=== PATIENT | female | born 1995 | race African-American/Black ===

== ENCOUNTER 2022-07-19 19:20 | Inpatient (IN) | payer OTHER ==
[2022-07-19] MEDS ORDERED: chlordiazePOXIDE HCL 25 MG CAPSULE PO PRN (21:40)
[2022-07-19] MEDS ORDERED: BISMUTH SUBSALICYLATE 524 MG/30 ML PO PRN (21:40)
[2022-07-19] MEDS ORDERED: MAGNESIUM HYDROX 2400MG/30ML ORAL SUSPENSION 30 ML CUP PO PRN (21:40)
[2022-07-19] MEDS ORDERED: LOPERAMIDE HCL 2 MG CAPSULE PO PRN (21:40)
[2022-07-19] MEDS ORDERED: BENZOCAINE/MENTHOL (CHLORASEPTIC ) LOZENGE MM PRN (21:40)
[2022-07-19] MEDS ORDERED: BENZONATATE 200 MG CAPSULE PO PRN (21:40)
[2022-07-19] MEDS ORDERED: ONDANSETRON *ODT* 4 MG TABLET SL PRN (21:40)
[2022-07-19] MEDS ORDERED: IBUPROFEN 400 MG TABLET (FP) PO PRN (21:40)
[2022-07-19] MEDS ORDERED: NALOXONE HCL (KLOXXADO) 8 MG SPRAY NS PRN (21:40)
[2022-07-19] MEDS ORDERED: DICYCLOMINE HCL 10 MG CAPSULE PO PRN (21:40)
[2022-07-19] MEDS ORDERED: POLYETHYLENE GLYCOL (HEALTHYLAX) 3350 17 GM PACKET PO PRN (21:40)
[2022-07-19] MEDS ORDERED: NALOXONE HCL 0.4 MG/ML VIAL IM PRN (21:40)
[2022-07-19] MEDS ORDERED: guaiFENesin 600 MG TABLET.ER (FP) PO PRN (21:40)
[2022-07-19] MEDS ORDERED: ACETAMINOPHEN 325 MG TABLET (FP) PO PRN (21:40)
[2022-07-19] MEDS ORDERED: MAG HYDROX/AL HYDROX/SIMETH 30 ML UNIT-DOSE CUP PO PRN (21:40)
[2022-07-19] MEDS ORDERED: MELATONIN 5 MG TABLETS PO SCH (22:00)
[2022-07-19] MEDS: THIAMINE HCL 100 MG TABLET (FP) PO SCH (22:37)
[2022-07-19] MEDS: cloNIDine HCL 0.1 MG TABLET PO PRN (22:39)
[2022-07-19] MEDS: chlordiazePOXIDE HCL 25 MG CAPSULE PO SCH (22:40)
[2022-07-19] MEDS ORDERED: chlordiazePOXIDE HCL 25 MG CAPSULE PO SCH (23:00)
[2022-07-20] MEDS: chlordiazePOXIDE HCL 25 MG CAPSULE PO SCH ×4 (06:06→22:08)
[2022-07-20] MEDS: PRENATAL VITAMINS W/ FOLIC ACID TABLET (FP) PO SCH (10:36)
[2022-07-20] MEDS: METHOCARBAMOL 500 MG TABLET PO PRN (17:51)
[2022-07-20] MEDS: THIAMINE HCL 100 MG TABLET (FP) PO SCH (22:07)
[2022-07-20] MEDS: MELATONIN 5 MG TABLETS PO SCH (22:07)
[2022-07-21] MEDS: chlordiazePOXIDE HCL 25 MG CAPSULE PO SCH ×4 (06:00→22:18)
[2022-07-21] MEDS: cloNIDine HCL 0.1 MG TABLET PO PRN ×2 (09:01→13:37)
[2022-07-21] MEDS: PRENATAL VITAMINS W/ FOLIC ACID TABLET (FP) PO SCH (10:11)
[2022-07-21 12:00] LABS: HEMATOCRIT 38.3 % (32.4-45.2); HEMOGLOBIN 13.2 GM/dL (10.7-15.3); MCH 31.3 pg (25.7-33.7); MCHC 34.4 g/dl (32.0-36.0); MEAN PLT VOLUME 9.7 fl (7.5-11.1); PLATELET COUNT 241 10^3/uL (134-434); RDW 15.1 % (11.6-15.6); WHITE BLOOD COUNT 6.1 K/mm3 (4.0-10.0)
[2022-07-21 12:25] LABS: CALCIUM 9.6 mg/dL (8.5-10.1)
[2022-07-21 12:26] LABS: ALBUMIN 4.2 g/dl (3.4-5.0); BLOOD UREA NITROGEN 5.8 mg/dL (7-18)
[2022-07-21 12:29] LABS: CREATININE 0.8 mg/dL (0.55-1.3)
[2022-07-21 12:31] LABS: BILIRUBIN,TOTAL 0.9 mg/dL (0.2-1); TOT PROT 7.3 g/dl (6.4-8.2)
[2022-07-21] MEDS: METHOCARBAMOL 500 MG TABLET PO PRN ×2 (13:35→22:18)
[2022-07-21] MEDS ORDERED: COLLOIDAL OATMEAL 1 BAR EACH TP PRN (15:41)
[2022-07-21] MEDS: hydrOXYzine PAMOATE 50 MG CAPSULE (FP) PO PRN (18:32)
[2022-07-21] MEDS: MELATONIN 5 MG TABLETS PO SCH (22:18)
[2022-07-21] MEDS: THIAMINE HCL 100 MG TABLET (FP) PO SCH (22:18)
[2022-07-21] MEDS: IBUPROFEN 600 MG TABLET (FP) PO PRN (22:19)
[2022-07-22] MEDS ORDERED: chlordiazePOXIDE HCL 10 MG CAPSULE PO PRN
[2022-07-22] MEDS: chlordiazePOXIDE HCL 10 MG CAPSULE PO SCH ×4 (05:32→22:10)
[2022-07-22] MEDS: METHOCARBAMOL 500 MG TABLET PO PRN ×2 (07:56→22:09)
[2022-07-22] MEDS: hydrOXYzine PAMOATE 50 MG CAPSULE (FP) PO PRN ×2 (09:51→17:17)
[2022-07-22] MEDS: PRENATAL VITAMINS W/ FOLIC ACID TABLET (FP) PO SCH (10:05)
[2022-07-22] MEDS: IBUPROFEN 600 MG TABLET (FP) PO PRN (15:41)
[2022-07-22] MEDS: FAMOTIDINE 20 MG TABLET PO SCH (22:09)
[2022-07-22] MEDS: MELATONIN 5 MG TABLETS PO SCH (22:09)
[2022-07-22] MEDS: GABAPENTIN 100 MG CAPSULE PO SCH (22:09)
[2022-07-22] MEDS: THIAMINE HCL 100 MG TABLET (FP) PO SCH (22:09)
[2022-07-23] MEDS: hydrOXYzine PAMOATE 50 MG CAPSULE (FP) PO PRN ×3 (02:42→16:48)
[2022-07-23] MEDS: chlordiazePOXIDE HCL 10 MG CAPSULE PO SCH ×2 (05:14→16:48)
[2022-07-23] MEDS: GABAPENTIN 100 MG CAPSULE PO SCH ×3 (05:15→22:09)
[2022-07-23] MEDS: FAMOTIDINE 20 MG TABLET PO SCH ×2 (09:34→22:09)
[2022-07-23] MEDS: PRENATAL VITAMINS W/ FOLIC ACID TABLET (FP) PO SCH (09:34)
[2022-07-23] MEDS ORDERED: SUVOREXANT 10 MG TABLET PO PRN (22:00)
[2022-07-23] MEDS: MELATONIN 5 MG TABLETS PO SCH (22:09)
[2022-07-23] MEDS: THIAMINE HCL 100 MG TABLET (FP) PO SCH (22:09)
[2022-07-23] MEDS: METHOCARBAMOL 500 MG TABLET PO PRN (22:11)
[2022-07-24] MEDS ORDERED: chlordiazePOXIDE HCL 10 MG CAPSULE PO ONE (05:00)
[2022-07-24] MEDS: GABAPENTIN 100 MG CAPSULE PO SCH (05:36)
[2022-07-24] MEDS: METHOCARBAMOL 500 MG TABLET PO PRN (05:36)
[2022-07-24 08:57] VITALS: BP 139/88; PULSE 72; RESP 18; TEMP 96.7
[2022-07-24] MEDS: hydrOXYzine PAMOATE 50 MG CAPSULE (FP) PO PRN (09:04)
[2022-07-24] MEDS: IBUPROFEN 600 MG TABLET (FP) PO PRN (09:20)
== END 2022-07-24 10:12 | disposition home or self-care (01) | DRG 773 ==
LOC: YASAS 19:20 → Y3N 22:05
PROVIDERS: ADMIT Allergy & Immunology; ATTEND Surgery
PROC: HZ2ZZZZ Detoxification Services for Substance Abuse Treatment (ICD-10-PCS; principal; 2022-07-19)
DX: F10.230 Alcohol dependence with withdrawal, uncomplicated (principal); F11.10 Opioid abuse, uncomplicated; F13.20 Sedative, hypnotic or anxiolytic dependence, uncomplicated; F15.20 Other stimulant dependence, uncomplicated; F12.20 Cannabis dependence, uncomplicated; F19.282 Other psychoactive substance dependence with psychoactive substance-induced sleep disorder; K21.9 Gastro-esophageal reflux disease without esophagitis; R63.8 Other symptoms and signs concerning food and fluid intake; Z62.810 Personal history of physical and sexual abuse in childhood; Z91.410 Personal history of adult physical and sexual abuse; Z87.891 Personal history of nicotine dependence
CPT/HCPCS: 36415; 80053; 81025; 85027; 86780; 87811; 93005; 93010; C9803-CS; U0003; U0005